=== PATIENT | male | born 2000 | race Caucasian/White ===

== ENCOUNTER 2023-07-16 05:31 | Emergency (ER) | payer OTHER, MEDICAID ==
[~2023-07-16] VITALS: Ht 177.8 cm; Wt 89.0 kg
[2023-07-16 05:40] VITALS: O2SAT 99
[2023-07-16] MEDS: LIDOCAINE HCL 1% 20ML VIAL (Pyxis) INJ INFIL ONE (10:00)
[2023-07-16 10:35] VITALS: BP 98/62; PULSE 69; RESP 18; TEMP 98.6
== END 2023-07-16 11:01 | disposition home or self-care (01) ==
LOC: ER 05:31
DX: S61.412A Laceration without foreign body of left hand, initial encounter (principal); W45.8XXA Other foreign body or object entering through skin, initial encounter; Y93.89 Activity, other specified; Y92.89 Other specified places as the place of occurrence of the external cause; Y99.8 Other external cause status
CPT/HCPCS: 12001; 73120; 99283